=== PATIENT | female | born 1985 | race African-American/Black ===

== ENCOUNTER 2020-10-26 11:14 | Emergency (ER) | payer OTHER ==
[~2020-10-26] VITALS: Ht 165.1 cm; Wt 72.6 kg
[~2020-10-26 11:14] MED LIST: ATIVAN1 MG PO; ATIVAN2 MG PO; BACTRIM DS TAB1 EACH PO; BENTYL 20 MG TA20 M1 PO; BENTYL10 MG PO; BENTYL20 MG PO; CIPROFLOXACIN500 M1 PO; FLAGYL500 MG PO; FLEXERIL PO; HYDROCODON-ACE1 EAC7 PO; HYDROXYZINE HCL25 M2 PO; NEXIUM; NOHOMEMEDICATIONS; NORCO 5-325 TA1 EACH PO; PEPCID40 MG PO; PEPTO-BISM262 MG/15 PO; PHENERGAN 25 MG25 M1 PO; PHENERGAN25 MG RE; PROMS25 WY RECTAL; QUETIAPINE FUM100 MG PO; REGLAN 5 MG TAB5 MG PO; TRAMADOL 50 MG50 MG PO; TRAMADOL HCL50 MG PO
[2020-10-26 16:09] LABS: ABSOLUTE NEUTROPHILS 7.8 thou/uL (1.4-8.2); BASOPHILS 0.7 % (0.0-2.0); EOSINOPHILS 0.2 % (0.0-3.0); HEMATOCRIT 33.8 % (37.0-47.0); HEMOGLOBIN 11.4 gm/dL (12.0-15.0); LYMPHOCYTES 13.2 % (24.0-44.0); MCH 32.5 pg (26.0-34.0); MCHC 33.8 g/dL (28.0-37.0); MCV 96.2 fL (80.0-100.0); PLATELET COUNT 520 thou/uL (150-400); POLYS 80.9 % (36.0-66.0); RBC 3.52 mil/uL (4.20-5.00); RDW 15.3 % (10.5-14.5); WBC 9.7 thou/uL (4.0-11.0)
[2020-10-26 16:17] LABS: ANION GAP 9 mmol/L (7-16); BUN 8 mg/dL (7-18); CALCIUM 9.7 mg/dL (8.5-10.1); CHLORIDE 106 mmol/L (98-107); CO2 27 mmol/L (21-32); CREATININE 0.7 mg/dL (0.6-1.0); GLUCOSE 76 mg/dL (74-106); POTASSIUM 3.5 mmol/L (3.5-5.1); SODIUM 142 mmol/L (136-145)
[2020-10-26 16:23] LABS: ALBUMIN 3.8 g/dL (3.4-5.0); DIRECT BILIRUBIN < 0.1 mg/dL (<0.1-0.2); SGOT 25 U/L (15-37); SGPT 14 U/L (14-59); TOTAL BILIRUBIN 0.4 mg/dL (0.2-1.0); TOTAL PROTEIN 7.9 g/dL (6.4-8.2)
[2020-10-26 16:54] LABS: SALICYLATE 6.9 mg/dL (2.8-20.0)
[2020-10-26 18:09] LABS: URINE BILIRUBIN NEGATIVE (Negative); URINE BLOOD TRACE (Negative); URINE CLARITY CLEAR; URINE COLOR YELLOW; URINE GLUCOSE-RANDOM* NEGATIVE (Negative); URINE KETONES NEGATIVE (Negative); URINE LEUKOCYTES-REFLEX TRACE (Negative); URINE NITRITE-REFLEX NEGATIVE (Negative); URINE PROTEIN (DIPSTICK) NEGATIVE (Negative); URINE SPECIFIC GRAVITY 1.015 (1.005-1.035); URINE UROBILINOGEN 0.2 E.U./dl (0.2-1.0)
[2020-10-26 18:15] VITALS: BP 131/79
[2020-10-26 18:31] LABS: AMP/METHAMP Negative (Negative); BARBITURATES Negative (Negative); BENZODIAZEPINES Negative (Negative); COCAINE Negative (Negative); METHADONE Negative (Negative); OPIATES Negative (Negative); PCP Negative (Negative)
--- NOTE | 2020-10-28 11:12 | EKG ---
[address] [place] [address] ELECTROCARDIOGRAM REPORT Name: GRETTA PIMENTEL Room #: [facility]#: [id number] Admission: 10/26/20 Attend Phys: Discharge: 10/26/20 Date of : 83 Report #: [id number] [facility] ED Test Date: 2020-10-26 Test Time: 11:27:35 Pat Name: GRETTA PIMENTEL Department: Room: Gender: F Firearms Sales Associate: JOCELYN : 1985 Requested By: Anamaria Meyer Order Number: [id number] MD: Kg Fox Measurements Intervals [place] Rate: 83 P: 37 CA: 138 QRS: 39 QRSD: 174 T: 32 QT: 363 QTc: 427 Interpretive Statements Sinus rhythm Nonspecific intraventricular conduction delay Baseline wander in lead(s) I,II,aVR,V1,V6 Compared to ECG 01/23/2015 08:07:03 Intraventricular conduction delay now present Atrial abnormality no longer present Electronically Signed On 10-28-2020 11:12:15 WHEEL LOADER OPERATOR by Kg Fox [email or web address] <ELECTRONICALLY SIGNED> By: Kg Fox MD, [facility] 10/28/20 1112 1127 112 Kg Fox MD, [facility] /EPI
== END 2020-10-26 18:17 | disposition home or self-care (01) ==
LOC: ER 11:14
PROVIDERS: Emergency Medicine
DX: G89.29 Other chronic pain (principal); R10.13 Epigastric pain; R10.12 Left upper quadrant pain; F41.9 Anxiety disorder, unspecified; R11.10 Vomiting, unspecified; F17.210 Nicotine dependence, cigarettes, uncomplicated; Z88.8 Allergy status to other drugs, medicaments and biological substances; Z88.6 Allergy status to analgesic agent; Z98.890 Other specified postprocedural states; Z90.49 Acquired absence of other specified parts of digestive tract

== ENCOUNTER 2020-12-06 16:34 | Emergency (ER) | payer OTHER ==
[~2020-12-06] VITALS: Ht 165.1 cm; Wt 63.5 kg
[2020-12-06 17:54] LABS: ABSOLUTE NEUTROPHILS 6.7 thou/uL (1.4-8.2); HEMATOCRIT 39.5 % (37.0-47.0); HEMOGLOBIN 13.2 gm/dL (12.0-15.0)
[2020-12-06 17:56] LABS: BASOPHILS 0.5 % (0.0-2.0); CALCIUM 10.1 mg/dL (8.5-10.1); CREATININE 0.8 mg/dL (0.6-1.0); EOSINOPHILS 0.6 % (0.0-3.0); MCH 31.3 pg (26.0-34.0); MCHC 33.5 g/dL (28.0-37.0); MCV 93.3 fL (80.0-100.0); MONOCYTES 9.9 % (1.0-8.0); RBC 4.23 mil/uL (4.20-5.00); RDW 14.4 % (10.5-14.5); WBC 11.1 thou/uL (4.0-11.0)
[2020-12-06 18:02] LABS: URINE BLOOD TRACE (Negative); URINE COLOR YELLOW; URINE GLUCOSE-RANDOM* NEGATIVE (Negative); URINE KETONES TRACE (Negative); URINE LEUKOCYTES-REFLEX TRACE (Negative); URINE NITRITE-REFLEX NEGATIVE (Negative); URINE PROTEIN (DIPSTICK) 1+ (Negative); URINE SPECIFIC GRAVITY 1.025 (1.005-1.035)
[2020-12-06 18:03] LABS: ALBUMIN 4.3 g/dL (3.4-5.0); DIRECT BILIRUBIN 0.1 mg/dL (<0.1-0.2); TOTAL BILIRUBIN 0.8 mg/dL (0.2-1.0); TOTAL PROTEIN 8.2 g/dL (6.4-8.2)
[2020-12-06 18:08] LABS: ICTOTEST (BILI CONFIRMATORY) Negative (Negative); URINE BILIRUBIN NEGATIVE (Negative); URINE CLARITY CLOUDY
[2020-12-06 18:10] LABS: AMP/METHAMP Negative (Negative); BARBITURATES Negative (Negative); BENZODIAZEPINES Negative (Negative); COCAINE Negative (Negative); METHADONE Negative (Negative); OPIATES Negative (Negative); PCP Negative (Negative)
[2020-12-06 18:15] LABS: BACTERIA-REFLEX >30 Many /HPF (None Seen); SQUAMOUS >10 Many /LPF (0-3); URINE RBC 3-10 Few /HPF (0-2); URINE WBC-REFLEX 0-5 Rare /HPF (0-5)
[2020-12-06 18:16] LABS: CASTS None Seen /LPF (None Seen); CRYSTALS None Seen /LPF (None Seen); MUCUS >6 Heavy strn/LPF (None Seen)
[2020-12-06 18:21] LABS: PLATELET COUNT 412 thou/uL (150-400)
[2020-12-06] MEDS ORDERED: PHENERGAN 25 MG25 M1 PO (20:46)
[2020-12-06] MEDS ORDERED: CARAFATE 1 GM TA1 G1 PO (20:46)
[2020-12-06 21:39] VITALS: BP 108/78
== END 2020-12-06 21:43 | disposition home or self-care (01) ==
LOC: ER 16:34
PROVIDERS: Nurse Practitioner
DX: R10.84 Generalized abdominal pain (principal); F17.210 Nicotine dependence, cigarettes, uncomplicated; Z90.49 Acquired absence of other specified parts of digestive tract; Z88.8 Allergy status to other drugs, medicaments and biological substances; Z20.822 Contact with and (suspected) exposure to COVID-19

== ENCOUNTER 2021-01-26 09:42 | Emergency (ER) | payer OTHER ==
[~2021-01-26] VITALS: Ht 170.2 cm; Wt 72.6 kg
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
[~2021-01-26 09:42] MED LIST changes: +CARAFATE 1 GM TA1 G1 PO
[2021-01-26 11:42] LABS: BASOPHILS 0.8 % (0.0-2.0); EOSINOPHILS 0.8 % (0.0-3.0); HEMATOCRIT 33.7 % (37.0-47.0); HEMOGLOBIN 11.6 gm/dL (12.0-15.0); LYMPHOCYTES 17.5 % (24.0-44.0); MCH 31.6 pg (26.0-34.0); MCHC 34.4 g/dL (28.0-37.0); MCV 91.7 fL (80.0-100.0); MONOCYTES 4.6 % (1.0-8.0); PLATELET COUNT 445 thou/uL (150-400); POLYS 76.3 % (36.0-66.0); RBC 3.68 mil/uL (4.20-5.00); RDW 15.6 % (10.5-14.5); WBC 7.9 thou/uL (4.0-11.0)
[2021-01-26 11:49] LABS: CALCIUM 9.5 mg/dL (8.5-10.1); CREATININE 0.8 mg/dL (0.6-1.0); POTASSIUM 3.5 mmol/L (3.5-5.1)
[2021-01-26 11:55] LABS: ALBUMIN 3.8 g/dL (3.4-5.0); TOTAL BILIRUBIN 0.4 mg/dL (0.2-1.0)
[2021-01-26 12:01] LABS: URINE BILIRUBIN NEGATIVE (Negative); URINE BLOOD TRACE (Negative); URINE CLARITY CLEAR; URINE COLOR YELLOW; URINE GLUCOSE-RANDOM* NEGATIVE (Negative); URINE KETONES TRACE (Negative); URINE LEUKOCYTES-REFLEX NEGATIVE (Negative); URINE NITRITE-REFLEX NEGATIVE (Negative); URINE PROTEIN (DIPSTICK) TRACE (Negative); URINE SPECIFIC GRAVITY 1.025 (1.005-1.035); URINE UROBILINOGEN 0.2 E.U./dl (0.2-1.0)
[2021-01-26 12:50] LABS: AMP/METHAMP Negative (Negative); BARBITURATES Negative (Negative); BENZODIAZEPINES Negative (Negative); COCAINE POSITIVE (Negative); METHADONE Negative (Negative); OPIATES Negative (Negative); PCP Negative (Negative)
[2021-01-26 18:13] VITALS: BP 118/80
== END 2021-01-26 18:13 | disposition home or self-care (01) ==
LOC: ER 09:42
PROVIDERS: Emergency Medicine Emergency Medical Services
DX: F14.10 Cocaine abuse, uncomplicated (principal); F12.10 Cannabis abuse, uncomplicated; R11.2 Nausea with vomiting, unspecified; F60.3 Borderline personality disorder; G89.29 Other chronic pain; R10.9 Unspecified abdominal pain; F17.210 Nicotine dependence, cigarettes, uncomplicated; Z88.8 Allergy status to other drugs, medicaments and biological substances; Z88.6 Allergy status to analgesic agent; Z98.890 Other specified postprocedural states; Z90.49 Acquired absence of other specified parts of digestive tract

== ENCOUNTER 2021-03-11 16:49 | Emergency (ER) | payer OTHER ==
[~2021-03-11] VITALS: Ht 170.2 cm; Wt 59.0 kg
[2021-03-11 19:03] LABS: ABSOLUTE NEUTROPHILS 7.4 thou/uL (1.4-8.2); BASOPHILS 0.6 % (0.0-2.0); EOSINOPHILS 0.5 % (0.0-3.0); HEMATOCRIT 32.6 % (37.0-47.0); HEMOGLOBIN 10.7 gm/dL (12.0-15.0); LYMPHOCYTES 18.5 % (24.0-44.0); MCH 29.6 pg (26.0-34.0); MCHC 32.8 g/dL (28.0-37.0); MCV 90.3 fL (80.0-100.0); POLYS 76.4 % (36.0-66.0); RBC 3.61 mil/uL (4.20-5.00); RDW 15.6 % (10.5-14.5); WBC 9.7 thou/uL (4.0-11.0)
[2021-03-11 19:10] LABS: CALCIUM 9.8 mg/dL (8.5-10.1); CREATININE 0.8 mg/dL (0.6-1.0); POTASSIUM 3.9 mmol/L (3.5-5.1)
[2021-03-11 19:25] LABS: URINE BILIRUBIN NEGATIVE (Negative); URINE BLOOD NEGATIVE (Negative); URINE CLARITY CLEAR; URINE COLOR YELLOW; URINE GLUCOSE-RANDOM* NEGATIVE (Negative); URINE KETONES NEGATIVE (Negative); URINE LEUKOCYTES-REFLEX NEGATIVE (Negative); URINE NITRITE-REFLEX NEGATIVE (Negative); URINE PROTEIN (DIPSTICK) TRACE (Negative)
[2021-03-11 19:35] LABS: AMP/METHAMP Negative (Negative); BARBITURATES POSITIVE (Negative); BENZODIAZEPINES Negative (Negative); COCAINE Negative (Negative); METHADONE Negative (Negative); OPIATES Negative (Negative); PCP Negative (Negative)
[2021-03-11 19:51] LABS: PLATELET COUNT 548 thou/uL (150-400)
[2021-03-12 01:15] VITALS: BP 149/96
== END 2021-03-12 01:15 | disposition home or self-care (01) ==
LOC: ER 16:49
PROVIDERS: Emergency Medicine; Physician Assistant
DX: R45.1 Restlessness and agitation (principal); G89.29 Other chronic pain; M54.5 Low back pain; F17.210 Nicotine dependence, cigarettes, uncomplicated; Z90.49 Acquired absence of other specified parts of digestive tract; Z98.890 Other specified postprocedural states; Z88.8 Allergy status to other drugs, medicaments and biological substances; Z88.6 Allergy status to analgesic agent

== ENCOUNTER 2021-03-12 02:16 | Emergency (ER) | payer OTHER ==
[~2021-03-12] VITALS: Ht 167.6 cm; Wt 68.0 kg
[2021-03-12 06:11] VITALS: BP 142/79
== END 2021-03-12 06:12 | disposition home or self-care (01) ==
LOC: ER 02:16
DX: F31.9 Bipolar disorder, unspecified (principal); Z20.822 Contact with and (suspected) exposure to COVID-19; G89.29 Other chronic pain; M54.9 Dorsalgia, unspecified; F17.210 Nicotine dependence, cigarettes, uncomplicated; Z90.49 Acquired absence of other specified parts of digestive tract; Z98.890 Other specified postprocedural states; Z88.6 Allergy status to analgesic agent; Z88.8 Allergy status to other drugs, medicaments and biological substances

== ENCOUNTER 2021-05-17 12:37 | Emergency (ER) | payer OTHER ==
[~2021-05-17] VITALS: Ht 165.1 cm; Wt 59.0 kg
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
[2021-05-17 14:46] LABS: URINE BILIRUBIN NEGATIVE (Negative); URINE BLOOD 3+ (Negative); URINE CLARITY CLOUDY; URINE COLOR RED; URINE GLUCOSE-RANDOM* NEGATIVE (Negative); URINE KETONES NEGATIVE (Negative); URINE NITRITE-REFLEX NEGATIVE (Negative); URINE PROTEIN (DIPSTICK) 2+ (Negative); URINE UROBILINOGEN 0.2 E.U./dl (0.2-1.0)
[2021-05-17 14:47] LABS: URINE LEUKOCYTES-REFLEX 1+ (Negative)
[2021-05-17 14:51] LABS: AMP/METHAMP Negative (Negative); BARBITURATES Negative (Negative); BENZODIAZEPINES Negative (Negative); CASTS None Seen /LPF (None Seen); COCAINE Negative (Negative); METHADONE Negative (Negative); OPIATES Negative (Negative); PCP Negative (Negative); SQUAMOUS 0-3 Few /LPF (0-3)
[2021-05-17 14:52] LABS: BACTERIA-REFLEX None Seen /HPF (None Seen); CRYSTALS None Seen /LPF (None Seen); URINE RBC >20 Many /HPF (NONE SEEN); URINE WBC-REFLEX 0-5 Rare /HPF (0-5)
[2021-05-17] MEDS ORDERED: PHENERGAN 25 MG25 M1 PO (16:34)
[2021-05-17 16:46] VITALS: BP 135/84
== END 2021-05-17 16:47 | disposition home or self-care (01) ==
LOC: ER 12:37
PROVIDERS: Nurse Practitioner Family
DX: G89.29 Other chronic pain (principal); Z20.822 Contact with and (suspected) exposure to COVID-19; R10.13 Epigastric pain; R11.2 Nausea with vomiting, unspecified; F31.9 Bipolar disorder, unspecified; F17.210 Nicotine dependence, cigarettes, uncomplicated; Z88.6 Allergy status to analgesic agent; Z88.5 Allergy status to narcotic agent; Z88.8 Allergy status to other drugs, medicaments and biological substances